=== PATIENT | male | born 1965 | race Caucasian/White ===

== ENCOUNTER 2017-09-06 08:16 | Emergency (ER) | payer OTHER ==
[~2017-09-06] VITALS: Ht 177.8 cm; Wt 74.8 kg
[2017-09-06] MEDS ORDERED: IBUPROFEN 800800 M1 PO (08:25)
[2017-09-06] MEDS ORDERED: KEFLEX500 M1 PO (09:34)
[2017-09-06] MEDS ORDERED: IBUPROFEN 800800 MG PO (09:34)
[2017-09-06 10:00] VITALS: BP 148/96
== END 2017-09-06 10:00 | disposition home or self-care (01) ==
LOC: M.ERS 08:16
DX: S63.681A Other sprain of right thumb, initial encounter (principal); J45.909 Unspecified asthma, uncomplicated; F17.210 Nicotine dependence, cigarettes, uncomplicated; X58.XXXA Exposure to other specified factors, initial encounter; Y93.89 Activity, other specified; Y92.89 Other specified places as the place of occurrence of the external cause; Y99.8 Other external cause status

== ENCOUNTER 2017-09-22 06:41 | Emergency (ER) | payer OTHER ==
[~2017-09-22] VITALS: Ht 177.8 cm; Wt 68.0 kg
[~2017-09-22 06:41] MED LIST: IBUPROFEN 800800 M1 PO; IBUPROFEN 800800 MG PO; KEFLEX500 M1 PO
[2017-09-22] MEDS ORDERED: TOBRAMYCIN SULFA5 ML OPHTHALMIC (07:20)
[2017-09-22] MEDS ORDERED: HYDROCODON-ACE1 EAC7 PO (07:20)
[2017-09-22 07:48] VITALS: BP 131/85
== END 2017-09-22 07:51 | disposition home or self-care (01) ==
LOC: M.ERS 06:41
DX: H10.31 Unspecified acute conjunctivitis, right eye (principal); J45.909 Unspecified asthma, uncomplicated; F17.210 Nicotine dependence, cigarettes, uncomplicated; Z98.890 Other specified postprocedural states